=== PATIENT | female | born 1985 ===

== ENCOUNTER 2017-03-30 11:18 | Outpatient (CLI) | payer OTHER ==
[~2017-03-30] VITALS: Ht 152.4 cm; Wt 68.0 kg
== END 2017-03-30 11:40 | disposition home or self-care (01) ==
LOC: OFIC 805 11:18
DX: H61.23 Impacted cerumen, bilateral (principal); H90.3 Sensorineural hearing loss, bilateral; H60.8X3 Other otitis externa, bilateral; B36.8 Other specified superficial mycoses; J31.0 Chronic rhinitis